=== PATIENT | female | born 1940 | race Caucasian/White ===

== ENCOUNTER → 2017-06-30 | Outpatient (CLI) | payer OTHER | LOC: CIMAGING 12:27 | PROVIDERS: ATTEND Emergency Medicine | DX: M41.84 Other forms of scoliosis, thoracic region (principal); M48.54XA Collapsed vertebra, not elsewhere classified, thoracic region, initial encounter for fracture; Q76.49 Other congenital malformations of spine, not associated with scoliosis | CPT/HCPCS: 72070-PO ==

== ENCOUNTER → 2018-06-27 | Outpatient (CLI) | payer OTHER, MEDICARE | LOC: FIMAGING 10:30 | PROVIDERS: ATTEND Internal Medicine | DX: R05 Cough (principal); M06.9 Rheumatoid arthritis, unspecified; Z85.3 Personal history of malignant neoplasm of breast ==